=== PATIENT | female | born 1965 | race Caucasian/White ===

== ENCOUNTER 2017-05-12 14:41 | Emergency (ER) | payer OTHER ==
--- NOTE | 2017-05-12 15:42 | PDOC ---
Rapid Medical Evaluation Chief Complaint: Asthma Medical Evaluation: Allergies Allergy/AdvReac Type Severity Reaction Status Date / Time No Known Drug Allergies Allergy Verified 09/06/13 20:15 05/12/17 15:41 I have performed a brief in-person evaluation of this patient. The patient presents with a chief complaint of:Body aches, cough, subj fever x 2 days. H/o asthma, DM, HTN Pertinent physical exam findings:Mildly tachycardic w/ minimal wheeze on exam I have ordered the following:duoneb and flu swab The patient will proceed to the ED for further evaluation. 05/12/17 15:44 Discharge Disposition - Referrals Referrals: Gena Holguin [Primary Care Provider] - - Patient Instructions - Post Discharge Activity
[2017-05-12] MEDS ORDERED: ALBUTEROL SO4 2.5/IPRATROPIUM 0.5 INH SOL 3 ML VIAL.NEB. NEB ONE ×2 (15:44→16:59)
[2017-05-12 15:46] VITALS: BP 107/76; PULSE 107; TEMP 99; BMI 30.9
[2017-05-12] MEDS ORDERED: IBUPROFEN 600 MG TABLET (FP) PO ONE ×2 (17:00→17:04)
--- NOTE | 2017-05-12 17:12 | PDOC ---
History of Present Illness - General Chief Complaint: Asthma Stated Complaint: Asthma Time Seen by Provider: 05/12/17 15:45 History Source: Patient Exam Limitations: No Limitations - History of Present Illness Initial Comments: 05/12/17 17:08 51-year-old female with history of asthma presents to the emergency room with complaints of cough, wheezing fever, chills, myalgia, and generalized malaise since yesterday. Patient states has been using her inhaler with minimal improvement and so decided come to the ER. Timing/Duration: reports: yesterday Severity: reports: moderate Possible Cause: Yes: no prior episodes Modifying Factors: improves with: coughing Associated Symptoms: reports: cough, fever/chills, muscle aches, sore throat, wheezing Past History - Travel Traveled outside of the country in the last 30 days: Yes - Past Medical History Allergies/Adverse Reactions: Allergies Allergy/AdvReac Type Severity Reaction Status Date / Time No Known Drug Allergies Allergy Verified 09/06/13 20:15 Home Medications: Ambulatory Orders Enalapril Maleate [Vasotec -] 5 mg PO BID 09/06/13 Hydrochlorothiazide [Hctz -] 25 mg PO DAILY 09/06/13 Levothyroxine [Synthroid -] 75 mcg PO DAILY 09/06/13 Metformin HCl [Glucophage -] 500 mg PO BID 09/06/13 Naproxen Sodium [Anaprox Ds] 550 mg PO BID #60 tablet 09/17/13 COPD: No Diabetes: Yes HTN: Yes Thyroid Disease: Yes - Suicide/Smoking/Psychosocial Hx Smoking History: Never smoked Have you smoked in the past 12 months: No Information on smoking cessation initiated: No Hx Alcohol Use: No Drug/Substance Use Hx: No Substance Use Type: None Hx Substance Use Treatment: No Patient Lives Alone: No Lives with/in: spouse/SO Review of Systems - Review of Systems Able to Perform ROS?: Yes Constitutional: Yes: Chills, Fever HEENTM: Yes: Throat Pain Respiratory: Yes: Cough, Wheezing Cardiac (ROS): No: Symptoms Reported ABD/GI: No: Symptoms Reported : No: Symptoms Reported Musculoskeletal: Yes: Joint Pain, Muscle Pain Integumentary: No: Symptoms Reported Neurological: Yes: Headache *Physical Exam - Vital Signs Last Vital Signs Temp Pulse Resp BP Pulse Ox 99.0 F 107 H 23 107/76 99 05/12/17 15:43 05/12/17 15:43 05/12/17 15:43 05/12/17 15:43 05/12/17 15:43 - Physical Exam General Appearance: Yes: Nourished, Appropriately Dressed. No: Apparent Distress HEENT: positive: EOMI, BIRD, TMs Normal, Pharynx Normal. negative: Pale Conjunctivae Respiratory/Chest: positive: Wheezing (bilateral expiratory intermittently) Cardiovascular: positive: Regular Rhythm, Tachycardia. negative: Murmur Integumentary: positive: Normal Color, Warm, Moist Neurologic: positive: Motor Strength 5/5 (ambulatory) ED Treatment Course - Medications Given in the ED: ED Medications Discontinued Medications Generic Name Dose Route Start Last Admin Trade Name Chaitanyaq PRN Reason Stop Dose Admin Albuterol/Ipratropium 1 amp 05/12/17 15:44 05/12/17 17:03 Duoneb - NEB 05/12/17 15:45 1 amp ONCE ONE Administration Ibuprofen 600 mg 05/12/17 17:00 05/12/17 17:03 Motrin - PO 05/12/17 17:01 600 mg ONCE ONE Administration Medical Decision Making - Medical Decision Making 05/12/17 17:13 Patient with URI symptoms and low-grade temperature. Patient ordered for albuterol secondary to wheezing, Motrin and awaiting influenza results 05/12/17 17:14 Influenza swab negative. Patient be discharged home with azithromycin and prednisone secondary to presentation of acute wheezy bronchitis. *DC/Admit/Observation/Transfer Diagnosis at time of Disposition: Acute wheezy bronchitis - Discharge Dispostion Disposition: HOME Condition at time of disposition: Good - Referrals Referrals: Gena Holguin [Primary Care Provider] - - Patient Instructions Printed Discharge Instructions: DI for Acute Bronchitis Additional Instructions: Please use your inhaler as previously prescribed by your primary care physician , prednisone, and azithromycin as prescribed. If you develop a fever please take Motrin or Tylenol. - Post Discharge Activity
== END 2017-05-12 17:24 | disposition home or self-care (01) ==
LOC: JERFT 14:41 → JER 14:41 → JERFT 17:24
PROC: 3E0F7GC Introduction of Other Therapeutic Substance into Respiratory Tract, Via Natural or Artificial Opening (ICD-10-PCS; principal; 2017-05-12)
DX: J20.9 Acute bronchitis, unspecified (principal); E03.9 Hypothyroidism, unspecified; E11.9 Type 2 diabetes mellitus without complications; Z79.84 Long term (current) use of oral hypoglycemic drugs
CPT/HCPCS: 87804; 94640; 99281-25